=== PATIENT | female | born 1995 | race Caucasian/White ===

== ENCOUNTER 2020-08-18 02:11 | Inpatient (IN) ==
[2020-08-18] MEDS ORDERED: MEPERIDINE 50 MG/1 ML VIAL IV PRN (02:30)
[2020-08-18] MEDS ORDERED: ONDANSETRON 4 MG/2 ML VIAL IV PRN (02:30)
[2020-08-18] MEDS ORDERED: LACTATED RINGERS 1,000 ML IV SCH (02:30)
[2020-08-18] MEDS: OXYTOCIN/LR 20 UNIT/1,000 ML BAG IV SCH ×2 (03:30→17:24)
[2020-08-18 03:34] LABS: Basophils % 0.5 % (0.0-0.8); Eosinophils # 0.1 10*3/uL (0.0-0.87); Eosinophils % 0.7 % (0.00-10.9); Hematocrit 37.5 VOL% (35.7-47.0); Hemoglobin 12.5 GM/DL (12.0-16.0); Immature Granulocytes % 2.1 %; Immature Granulocytes Absolute 0.17 #; Lymphocytes # 2.2 10*3/uL (1.4-4.0); Lymphocytes % 26.6 % (21.3-54.2); Mean Corpuscular HGB Conc 33.3 GM/DL (32-36); Mean Platelet Volume 13.4 FL (9.6-12.0); Monocytes % 9.2 % (1.7-12.7); Neutrophils % 60.9 % (38.7-73.9); Platelet Count 170 T/CUMM (130-400); Red Blood Count 4.31 MC/CUMM (3.8-5.5); White Blood Count 8.1 T/CUMM (4-12)
[2020-08-18 03:51] LABS: Bacteria,Urine Occasional /HPF (Few); Bilirubin,Urine Negative (Negative); Blood, Urine NEGATIVE (Negative); Glucose,Urine (UA) Negative (Negative); Ketones,Urine 25 mg/dL (Negative); Mucus,Urine Occasional /LPF (Occasional); Nitrite,Urine Negative (Negative); Protein,Urine Negative; RBC,Urine 1 /HPF (0-4); Squamous Epithelial Cell,Urine Occasional /HPF (0-10); Urine Color Yellow (Yellow); Urine Specific Gravity 1.005 (1.001-1.035); WBC,Urine 3 /HPF (0-6)
[2020-08-18] MEDS ORDERED: AMPICILLIN INJ 2,000 MG in SODIUM CHLORIDE 0.9% 100 ML IV ONE (03:52)
[2020-08-18 03:57] LABS: Urine Appearance CLEAR (Clear); Urine Urobilinogen 0.2 EU/DL (0.2-1.0)
[2020-08-18] MEDS ORDERED: ALUMINUM/MAGNES/SIMETH MAX STR 30 ML UDCUP PO PRN (04:34)
[2020-08-18] MEDS ORDERED: LACTATED RINGERS 1,000 ML IV ONE (07:37)
[2020-08-18] MEDS ORDERED: NALOXONE 0.4 MG/ML VIAL IV PRN (07:37)
[2020-08-18] MEDS ORDERED: ePHEDrine 50 MG/ML VIAL IV PRN (07:37)
[2020-08-18] MEDS ORDERED: FAMOTIDINE 20 MG/2 ML VIAL IV ONE (07:37)
[2020-08-18] MEDS ORDERED: hydrOXYzine HCL 25 MG/1 ML VIAL IM PRN (07:37)
[2020-08-18] MEDS ORDERED: PROMETHAZINE 25 MG/1 ML VIAL IM ONE (07:37)
[2020-08-18] MEDS ORDERED: diphenhydrAMINE 50 MG/1 ML VIAL IV PRN ×2 (07:37)
[2020-08-18] MEDS ORDERED: CITRIC ACID/SODIUM CITRATE 30 ML UDCUP PO ONE (07:37)
[2020-08-18] MEDS ORDERED: AMPICILLIN INJ 1,000 MG in SODIUM CHLORIDE 0.9% 100 ML IV SCH (08:00)
[2020-08-18] MEDS ORDERED: fentaNYL 2 MCG/ROPIV 0.2% EPID 100 ML EPIDURAL SCH (08:00)
[2020-08-18 12:53] LABS: Bilirubin,Urine Negative (Negative); Blood, Urine Negative (Negative); Glucose,Urine (UA) Negative (Negative); Ketones,Urine 20 mg/dL (Negative); Mucus,Urine Occasional /LPF (Occasional); Nitrite,Urine Negative (Negative); Protein,Urine Negative; Squamous Epithelial Cell,Urine Occasional /HPF (0-10); Urine Appearance CLEAR (Clear); Urine Color Yellow (Yellow); Urine Specific Gravity 1.015 (1.001-1.035); Urine Urobilinogen < 2.0 EU/DL (0.2-1.0); WBC,Urine 1 /HPF (0-6)
[2020-08-18] MEDS ORDERED: METHYLERGONOVINE 0.2 MG/1 ML AMP ONE (15:35)
[2020-08-18] MEDS ORDERED: TRANEXAMIC ACID 1,000 MG/10 ML VIAL ONE (15:35)
[2020-08-18] MEDS ORDERED: OXYTOCIN/LR 20 UNIT/1,000 ML BAG IV ONE (15:35)
[2020-08-18] MEDS ORDERED: miSOPROStoL 200 MCG TABLET ONE (15:35)
[2020-08-18] MEDS ORDERED: CARBOPROST TROMETHAMINE 250 MCG/ML AMP IM ONE (15:36)
[2020-08-18 16:39] LABS: Cord Arterial Blood HCO3 20.9 MMOL/L
[2020-08-18 16:43] LABS: Cord Venous Blood HCO3 22.8 MMOL/L; Cord Venous Blood PCO2 39.1 MMHG; Cord Venous Blood PO2 34.4
[2020-08-18] MEDS ORDERED: oxyCODONE/ACETAMINOPHEN 5-325 MG TABLET PO PRN (21:02)
[2020-08-18] MEDS: IBUPROFEN 800 MG TABLET PO PRN (21:15)
[2020-08-18] MEDS: oxyCODONE/ACETAMINOPHEN 5-325 MG TABLET PO PRN (21:15)
[2020-08-19] MEDS: oxyCODONE/ACETAMINOPHEN 5-325 MG TABLET PO PRN ×3 (06:12→19:39)
[2020-08-19] MEDS: IBUPROFEN 800 MG TABLET PO PRN ×3 (06:12→19:39)
[2020-08-19] MEDS ORDERED: BENZOCAINE 20%/MENTHOL 0.5% SPRAY 56 GM CAN TOP PRN (06:14)
[2020-08-19 06:23] LABS: Basophils # 0.1 10*3/uL (0.0-0.2); Basophils % 0.5 % (0.0-0.8); Eosinophils # 0.1 10*3/uL (0.0-0.87); Eosinophils % 0.7 % (0.00-10.9); Hematocrit 25.9 VOL% (35.7-47.0); Hemoglobin 8.4 GM/DL (12.0-16.0); Immature Granulocytes % 1.6 %; Immature Granulocytes Absolute 0.17 #; Lymphocytes # 2.1 10*3/uL (1.4-4.0); Lymphocytes % 19.9 % (21.3-54.2); Mean Corpuscular HGB Conc 32.4 GM/DL (32-36); Mean Corpuscular Volume 87.8 FL (87-102); Mean Platelet Volume 13.7 FL (9.6-12.0); Monocytes % 9.1 % (1.7-12.7); Neutrophils % 68.2 % (38.7-73.9); Red Blood Count 2.95 MC/CUMM (3.8-5.5); Red Cell Distribution Width 17.3 % (9.3-17.3); White Blood Count 10.7 T/CUMM (4-12)
[2020-08-19 06:29] LABS: Platelet Count 135 T/CUMM (130-400)
[2020-08-19 06:46] LABS: Hypochromasia 1+; Microcytosis 1+
[2020-08-19] MEDS: DOCUSATE SODIUM 100 MG CAPSULE PO SCH ×3 (09:16→23:55)
[2020-08-19] MEDS: FERROUS SULFATE 325 MG TABLET PO SCH ×3 (09:16→23:55)
[2020-08-20] MEDS: FERROUS SULFATE 325 MG TABLET PO SCH (07:17)
[2020-08-20] MEDS: DOCUSATE SODIUM 100 MG CAPSULE PO SCH (07:17)
[2020-08-20] MEDS: oxyCODONE/ACETAMINOPHEN 5-325 MG TABLET PO PRN (07:17)
[2020-08-20] MEDS: IBUPROFEN 800 MG TABLET PO PRN (07:18)
[2020-08-20 08:18] VITALS: BP 116/71
== END 2020-08-20 13:00 | disposition home or self-care (01) | DRG 560 ==
LOC: N.LDOUT 02:11 → N.LD 02:14 → N.OB 23:06
PROVIDERS: ADMIT Obstetrics & Gynecology; ATTEND Obstetrics & Gynecology

== ENCOUNTER 2022-06-06 04:45 | Inpatient (IN) ==
[2022-06-06] MEDS ORDERED: METHYLERGONOVINE 0.2 MG/1 ML AMP IM PRN (05:01)
[2022-06-06] MEDS ORDERED: miSOPROStoL 200 MCG TABLET RECTAL PRN (05:01)
[2022-06-06] MEDS ORDERED: ONDANSETRON 4 MG/2 ML VIAL IV PRN (05:01)
[2022-06-06] MEDS ORDERED: BUTORPHANOL 2 MG/ML VIAL IV PRN (05:01)
[2022-06-06] MEDS ORDERED: TRANEXAMIC ACID 1,000 MG in SODIUM CHLORIDE 0.9% 100 ML IV PRN (05:01)
[2022-06-06] MEDS ORDERED: CARBOPROST TROMETHAMINE 250 MCG/ML AMP IM PRN (05:01)
[2022-06-06] MEDS ORDERED: OXYTOCIN/LR 20 UNIT/1,000 ML BAG IV PRN (05:01)
[2022-06-06] MEDS ORDERED: MEPERIDINE 50 MG/1 ML VIAL IV PRN (05:01)
[2022-06-06] MEDS ORDERED: OXYTOCIN/LR 30 UNIT/1,000 ML BAG IV PRN (05:03)
[2022-06-06] MEDS: LACTATED RINGERS 1,000 ML IV SCH ×2 (05:20→09:56)
[2022-06-06] MEDS ORDERED: OXYTOCIN/LR 20 UNIT/1,000 ML BAG IV SCH (05:30)
[2022-06-06 06:22] LABS: Basophils % 0.3 % (0.0-0.8); Eosinophils # 0.1 10*3/uL (0.0-0.87); Eosinophils % 0.9 % (0.00-10.9); Hematocrit 36.1 VOL% (35.7-47.0); Hemoglobin 12.3 GM/DL (12.0-16.0); Immature Granulocytes % 2.4 %; Immature Granulocytes Absolute 0.22 #; Lymphocytes # 2.2 10*3/uL (1.4-4.0); Lymphocytes % 23.9 % (21.3-54.2); Mean Corpuscular HGB Conc 34.1 GM/DL (32-36); Mean Corpuscular Volume 89.1 FL (87-102); Mean Platelet Volume 11.2 FL (9.6-12.0); Monocytes # 0.8 10*3/uL (0.11-0.8); Monocytes % 8.3 % (1.7-12.7); Neutrophils % 64.2 % (38.7-73.9); Platelet Count 208 T/CUMM (130-400); Red Blood Count 4.05 MC/CUMM (3.8-5.5); Red Cell Distribution Width 15.1 % (9.3-17.3); White Blood Count 9.1 T/CUMM (4-12)
[2022-06-06 06:34] LABS: Albumin 2.6 G/DL (3.4-5.0); Bilirubin,Total 0.4 MG/DL (0.20-1.00); Calcium 9.1 MG/DL (8.5-10.1); Osmolality,Calculated 272.7 MOS/KG (273-304); Potassium 3.1 MMOL/L (3.5-5.1); Total Protein 6.3 G/DL (6.4-8.2)
[2022-06-06] MEDS ORDERED: diphenhydrAMINE 50 MG/1 ML VIAL IV PRN ×2 (08:47)
[2022-06-06] MEDS ORDERED: ePHEDrine 50 MG/ML VIAL IV PRN (08:47)
[2022-06-06] MEDS ORDERED: hydrOXYzine HCL 25 MG/1 ML VIAL IM PRN (08:47)
[2022-06-06] MEDS ORDERED: PROMETHAZINE 25 MG/1 ML VIAL IM ONE (08:47)
[2022-06-06] MEDS ORDERED: CITRIC ACID/SODIUM CITRATE 30 ML UDCUP PO ONE (08:47)
[2022-06-06] MEDS ORDERED: NALOXONE 0.4 MG/ML VIAL IV PRN (08:47)
[2022-06-06] MEDS ORDERED: FAMOTIDINE 20 MG/2 ML VIAL IV ONE (08:47)
[2022-06-06] MEDS ORDERED: fentaNYL 2 MCG/ROPIV 0.2% EPID 100 ML EPIDURAL SCH (09:00)
[2022-06-06] MEDS ORDERED: POTASSIUM CHLORIDE 20 MEQ TABLET PO PRN (09:17)
[2022-06-06] MEDS ORDERED: SODIUM CHLORIDE 0.9% 0 ML IV ONE (11:14)
[2022-06-06] MEDS ORDERED: METHYLERGONOVINE 0.2 MG/1 ML AMP ONE (11:14)
[2022-06-06] MEDS ORDERED: TRANEXAMIC ACID 1,000 MG/10 ML VIAL ONE (11:14)
[2022-06-06] MEDS ORDERED: miSOPROStoL 200 MCG TABLET ONE (11:14)
[2022-06-06] MEDS ORDERED: CARBOPROST TROMETHAMINE 250 MCG/ML AMP IM ONE (11:14)
[2022-06-06 11:47] LABS: Amorphous Crystals,Urine Few /HPF (Few); Mucus,Urine Occasional /LPF (Occasional); RBC,Urine 1 /HPF (0-4)
[2022-06-06 11:48] LABS: Bilirubin,Urine Negative (Negative); Blood, Urine Negative (Negative); Glucose,Urine (UA) Negative (Negative); Ketones,Urine 80 mg/dL (Negative); Nitrite,Urine Negative (Negative); Protein,Urine Negative (Negative); Urine Appearance Clear (Clear); Urine Color Yellow (Yellow); Urine Urobilinogen 0.2 eU/dL (<2.0); Urine pH 7.5 (4.5-8.0)
[2022-06-06 12:39] LABS: Cord Venous Blood HCO3 23.8 MMOL/L; Cord Venous Blood PCO2 38.3 MMHG; Cord Venous Blood PO2 36.9
[2022-06-06] MEDS ORDERED: OXYTOCIN/LR 20 UNIT/1,000 ML BAG IV ONE (16:21)
[2022-06-06] MEDS ORDERED: MEASLES/MUMPS/RUBELLA VACCINE 0.5 ML VIAL SUBCUT ONE (16:21)
[2022-06-06] MEDS ORDERED: BISACODYL 10 MG SUPP RECTAL PRN (16:21)
[2022-06-06] MEDS ORDERED: WITCH HAZEL PADS 100/JAR TOP PRN (16:21)
[2022-06-06] MEDS ORDERED: oxyCODONE/ACETAMINOPHEN 5-325 MG TABLET PO PRN (16:21)
[2022-06-06] MEDS ORDERED: LANOLIN 50% CREAM 0.3 OZ TUBE TOP PRN (16:21)
[2022-06-06] MEDS ORDERED: HYDROCORTISONE 2.5% RECTAL CREAM 30 GM TUBE TOP PRN (16:21)
[2022-06-06] MEDS ORDERED: RHO(D) IMMUNE GLOBULIN 300 MCG SYRINGE IM ONE (16:21)
[2022-06-06] MEDS ORDERED: DIPH/TET/ACEL PERT BOOSTER VACCINE 0.5 ML VIAL IM ONE (16:21)
[2022-06-06] MEDS ORDERED: BENZOCAINE 20%/MENTHOL 0.5% SPRAY 56 GM CAN TOP PRN (16:21)
[2022-06-06] MEDS ORDERED: ACETAMINOPHEN 325 MG TABLET PO PRN (16:21)
[2022-06-06] MEDS: IBUPROFEN 800 MG TABLET PO PRN ×2 (16:38→22:05)
[2022-06-06] MEDS: oxyCODONE/ACETAMINOPHEN 5-325 MG TABLET PO PRN ×2 (16:39→22:05)
[2022-06-06] MEDS ORDERED: POTASSIUM CHLORIDE RIDER 10 MEQ/100 ML PREMIX IV ONE (17:21)
[2022-06-06] MEDS: DOCUSATE SODIUM 100 MG CAPSULE PO SCH (20:28)
[2022-06-06] MEDS: POTASSIUM CHLORIDE 20 MEQ TABLET PO PRN ×2 (20:28→23:04)
[2022-06-07] MEDS: POTASSIUM CHLORIDE 20 MEQ TABLET PO PRN (01:11)
[2022-06-07 04:31] LABS: Basophils # 0.1 10*3/uL (0.0-0.2); Basophils % 0.6 % (0.0-0.8); Eosinophils # 0.1 10*3/uL (0.0-0.87); Eosinophils % 1.3 % (0.00-10.9); Hematocrit 29.5 VOL% (35.7-47.0); Immature Granulocytes % 1.7 %; Immature Granulocytes Absolute 0.18 #; Lymphocytes # 2.4 10*3/uL (1.4-4.0); Lymphocytes % 22.7 % (21.3-54.2); Mean Corpuscular HGB Conc 33.9 GM/DL (32-36); Mean Platelet Volume 11.7 FL (9.6-12.0); Monocytes # 0.9 10*3/uL (0.11-0.8); Monocytes % 8.6 % (1.7-12.7); Neutrophils % 65.1 % (38.7-73.9); Platelet Count 168 T/CUMM (130-400); Red Blood Count 3.24 MC/CUMM (3.8-5.5); Red Cell Distribution Width 15.2 % (9.3-17.3); White Blood Count 10.8 T/CUMM (4-12)
[2022-06-07] MEDS: IBUPROFEN 800 MG TABLET PO PRN ×2 (05:38→23:17)
[2022-06-07] MEDS: POTASSIUM CHLORIDE 20 MEQ TABLET PO SCH (08:21)
[2022-06-07] MEDS: valACYclovir 500 MG TABLET PO SCH (08:22)
[2022-06-07] MEDS: DOCUSATE SODIUM 100 MG CAPSULE PO SCH ×2 (08:22→21:07)
[2022-06-07] MEDS: MULTIVITAMIN (PRENATAL) TABLET PO SCH (08:22)
[2022-06-07] MEDS: oxyCODONE/ACETAMINOPHEN 5-325 MG TABLET PO PRN ×2 (15:03→23:17)
[2022-06-08] MEDS: valACYclovir 500 MG TABLET PO SCH (09:07)
[2022-06-08] MEDS: POTASSIUM CHLORIDE 20 MEQ TABLET PO SCH (09:08)
[2022-06-08] MEDS: DOCUSATE SODIUM 100 MG CAPSULE PO SCH (09:08)
[2022-06-08] MEDS: IBUPROFEN 800 MG TABLET PO PRN (09:08)
[2022-06-08] MEDS: MULTIVITAMIN (PRENATAL) TABLET PO SCH (09:08)
[2022-06-08 12:31] VITALS: BP 135/80
== END 2022-06-08 14:20 | disposition home or self-care (01) | DRG 560 ==
LOC: N.LD 04:45 → N.OB 15:40
PROVIDERS: ADMIT Obstetrics & Gynecology; ATTEND Obstetrics & Gynecology